=== PATIENT | male | born 1960 ===

== ENCOUNTER 2017-08-30 06:22 | Day surgery (SDC) | payer OTHER ==
[2017-08-30] MEDS ORDERED: Ringers Lactate 1,000 ML IV ONE (06:54)
[2017-08-30] MEDS ORDERED: LIDOCAINE 1% MPF 5 ML VIAL ONE (07:22)
[2017-08-30] MEDS ORDERED: FENTANYL CITR 100 MCG/2 ML ONE (07:22)
[2017-08-30] MEDS ORDERED: PROPOFOL 200 MG/20 ML VIAL IV ONE ×2 (07:22)
[2017-08-30] MEDS ORDERED: EPINEPHRINE/PF 1 MG/ML AMP ONE (07:27)
--- NOTE | 2017-08-30 10:49 | OP ---
Date of Procedure: 08/30/2017 Surgeon: Nora Gil MD Procedure: 1.Colonoscopy. 2.Anesthesia by Department of Anesthesia. Indication: Colorectal cancer screening. Premedication: Per Anesthesia. [place] Prep Scale: 9/9. Procedure In Detail: Procedure, possible complications, and alternatives including, but not limited to the possibility of bleeding, perforation, tear, infection, sepsis, need for surgery, need for bloo d transfusion, anesthesia related problem explained to the patient. Informed consent was obtained. The patient was placed in left lateral position. After appropriate level of anesthesia, digital and rectal examination were performed and was normal. No prostate nodularity or asymmetry noted. Mucosa of the rectum, sigmoid colon, descending colon, transverse colon, ascending colon, cecum, ileo cecal valve area appeared to be within normal range. Rare diverticula noted in the transverse colon area. Other than that, no other mass or lesion was noted. Repeated visualization was done on way back. Having done above procedure in a safe, diligent, and sa tisfactory manner, endoscope and rest of the endoscopic accessories were removed. The patient's rect al area cleaned out in a respectful manner. The patient has been sent in excellent condition to post op recovery, from there to the floor. Impression: Rare diverticulosis. Plan: Follow up in office. Complications: None. The patient tolerated the procedure well. Disposition: To home after full recovery under care of the Anesthesia. ALBERTO/NARINDER Voice ID: [id number] Report ID: [id number]
== END 2017-08-30 09:00 | disposition home health service (06) ==
LOC: OR 06:22
PROVIDERS: ATTEND Internal Medicine Gastroenterology
PROC: 0DJD8ZZ Inspection of Lower Intestinal Tract, Via Natural or Artificial Opening Endoscopic (ICD-10-PCS; principal; 2017-08-30 07:39)
DX: K57.30 Diverticulosis of large intestine without perforation or abscess without bleeding (principal); R19.4 Change in bowel habit; K21.9 Gastro-esophageal reflux disease without esophagitis; Z88.3 Allergy status to other anti-infective agents
CPT/HCPCS: J0171; J3010

== ENCOUNTER 2017-09-27 10:14 | Day surgery (SDC) | payer OTHER ==
[2017-09-27] MEDS ORDERED: Ringers Lactate 1,000 ML IV ONE (10:55)
[2017-09-27] MEDS ORDERED: LIDOCAINE 1% MPF 5 ML VIAL ONE (12:10)
[2017-09-27] MEDS ORDERED: PROPOFOL 200 MG/20 ML VIAL IV ONE (12:10)
--- NOTE | 2017-09-28 00:03 | OP ---
Surgeon: Eric Martinez MD Procedure To Be Performed: Esophagogastroduodenoscopy. Indication For Procedure: Chronic GERD and chronic diarrhea. Plan For Anesthesia: Monitored anesthesia care. Complexity: Average. Technique: After obtaining informed consent from the patient and explaining risks and complications which include, but are not limited to bleeding, infection, perforation, and anesthesia complication. The patient was placed in a left lateral position. Sedation was given. From then on, the scope was advanced to the mouth and carefully guided up to the fourth portion of the duodenum. After the comp letion of examination and all diagnostic maneuvers, the scope and equipment were withdrawn and proced ure terminated in a safe manner. Findings: Esophagus: The proximal and mid esophagus appeared normal. However, in the distal esopha nava, a small hiatal hernia was seen. Also mucosa consistent with Han's was seen, [place] classifi cation C2M4. Multiple biopsies taken from this region. Stomach: Mild patchy erythema seen in the body and antrum. Biopsies taken. Duodenum: The bulbs and remainder duodenum appeared normal. Small intestinal biopsies taken to rule out celiac disease. Complications: None. Tolerance: None. Anesthesia: Excellent. Postoperative Diagnoses: Han's esophagus, hiatal hernia, and gastritis. Plan: 1.Await pathology results. 2.Omeprazole 40 mg daily. 3.Anti-reflex measures. 4.Follow up in the GI clinic in one to two weeks. US/MODL Voice ID: [id number] Report ID: [id number]
== END 2017-09-27 13:15 | disposition home or self-care (01) ==
LOC: OR 10:14
PROVIDERS: ATTEND Internal Medicine Gastroenterology
PROC: 0DB88ZX Excision of Small Intestine, Via Natural or Artificial Opening Endoscopic, Diagnostic (ICD-10-PCS; 2017-09-27)
PROC: 0DB68ZX Excision of Stomach, Via Natural or Artificial Opening Endoscopic, Diagnostic (ICD-10-PCS; 2017-09-27)
PROC: 0DB38ZX Excision of Lower Esophagus, Via Natural or Artificial Opening Endoscopic, Diagnostic (ICD-10-PCS; principal; 2017-09-27 11:45)
DX: K22.70 Barrett's esophagus without dysplasia (principal); K44.9 Diaphragmatic hernia without obstruction or gangrene; K29.50 Unspecified chronic gastritis without bleeding; K21.0 Gastro-esophageal reflux disease with esophagitis; Z88.3 Allergy status to other anti-infective agents
CPT/HCPCS: 88305; 88312; 88313

== ENCOUNTER 2019-01-20 07:54 | Day surgery (SDC) | payer OTHER ==
[2019-01-20] MEDS ORDERED: Ringers Lactate 1,000 ML IV ONE (08:16)
[2019-01-20] MEDS ORDERED: PROPOFOL 200 MG/20 ML VIAL IV ONE (08:16)
[2019-01-20] MEDS ORDERED: GLYCOPYRROLATE 0.2 MG/ML SYR ONE (08:16)
[2019-01-20] MEDS ORDERED: LIDOCAINE 1% MPF 5 ML VIAL ONE (08:16)
[2019-01-20 09:29] VITALS: BP 124/70; TEMP 97.5; O2SAT 98
--- NOTE | 2019-01-20 10:09 | OP ---
Surgeon: Eric Martinez MD Procedure To Be Performed: Esophagogastroduodenoscopy. Indication For Procedure: Dyspepsia, history of longstanding GERD with Han's. Plan For Anesthesia: Monitored anesthesia care. Complexity: Average. Technique: After obtaining informed consent from the patient explaining risks and complications whic h include, but are not limited to bleeding, infection, perforation, and anesthesia complication, deyvi ent was placed in a left lateral position and sedation was given. From then on, the scope was advanc ed through the mouth and carefully guided up until the second portion of the duodenum. After the com pletion of examination, scope and equipment were withdrawn and procedure terminated in a safe manner. Findings: 1.Esophagus: No gross lesions seen in the upper and mid esophagus. In the distal esophagus a small hiatal hernia was seen. Also, seen was two tongues of salmon-colored mucosa consistent with Han 's. Lena classification C1 M2. Multiple biopsies taken. 2.Stomach: Mild patchy erythema seen in the body and antrum. Separate antral and body biopsies jose manuel en. 3.Duodenum: The bulb and second portion appeared normal. Complications: None. Tolerance To Anesthesia: Excellent. Postoperative Diagnoses: Probable Han's, hiatal hernia, gastritis. Plan: 1.Await pathology results. 2.Follow up in the GI clinic in 2 weeks. 3.Continue PPI. 4.Antireflux measures. US/MODL Voice ID: [id number] Report ID: [id number]
== END 2019-01-20 09:40 | disposition home or self-care (01) ==
LOC: OR 07:54
PROVIDERS: ATTEND Internal Medicine Gastroenterology
PROC: 0DB68ZX Excision of Stomach, Via Natural or Artificial Opening Endoscopic, Diagnostic (ICD-10-PCS; 2019-01-20)
PROC: 0DB38ZX Excision of Lower Esophagus, Via Natural or Artificial Opening Endoscopic, Diagnostic (ICD-10-PCS; principal; 2019-01-20 09:00)
DX: K21.0 Gastro-esophageal reflux disease with esophagitis (principal); K29.50 Unspecified chronic gastritis without bleeding; K44.9 Diaphragmatic hernia without obstruction or gangrene; R19.4 Change in bowel habit; E73.9 Lactose intolerance, unspecified; Z88.3 Allergy status to other anti-infective agents
CPT/HCPCS: 88305; 88312; 88313; J2704